=== PATIENT | male | born 1970 | race Caucasian/White ===

== ENCOUNTER 2020-02-15 15:21 | Emergency (ER) | payer BC ==
[~2020-02-15] VITALS: Ht 172.7 cm; Wt 113.0 kg
[2020-02-15] MEDS ORDERED: PRILOSEC OTC20 MG PO (15:38)
[2020-02-15 16:16] LABS: URINE BILIRUBIN NEGATIVE (Negative); URINE BLOOD NEGATIVE (Negative); URINE CLARITY CLEAR; URINE COLOR YELLOW; URINE GLUCOSE-RANDOM NEGATIVE (Negative); URINE KETONES TRACE (Negative); URINE LEUKOCYTES-REFLEX NEGATIVE (Negative); URINE NITRITE-REFLEX NEGATIVE (Negative); URINE PROTEIN NEGATIVE (Negative); URINE SPECIFIC GRAVITY 1.015 (1.005-1.030)
[2020-02-15 16:17] LABS: ABSOLUTE LYMPHOCYTES 0.6 thou/uL (0.8-5.3); ABSOLUTE MONOCYTES 0.5 thou/uL (0.0-1.2); ABSOLUTE NEUTROPHILS 1.9 thou/uL (1.6-8.1); BASOPHILS 0.4 %; EOSINOPHILS 0.4 %; HEMATOCRIT 46.8 % (42.0-52.0); HEMOGLOBIN 15.9 gm/dL (14.0-18.0); LYMPHOCYTES 21.1 %; MCH 30.3 pg (26.0-34.0); MCV 89.2 fL (80.0-100.0); MONOCYTES 15.1 %; NUCLEATED RBCS 0 /100WBC; PLATELET COUNT* 162 thou/uL (150-400); RBC 5.25 mil/uL (4.50-6.00)
[2020-02-15 16:23] LABS: CALCIUM 7.9 mg/dL (8.5-10.1); CREATININE 1.2 mg/dL (0.6-1.3); POTASSIUM 3.9 mmol/L (3.5-5.1)
[2020-02-15 16:28] LABS: ALBUMIN 3.5 g/dL (3.4-5.0); TOTAL BILIRUBIN 0.3 mg/dL (<0.1-1.0); TOTAL PROTEIN 7.3 g/dL (6.4-8.2)
[2020-02-15] MEDS ORDERED: ONDANSETRON ODT4 MG PO (18:26)
[2020-02-15] MEDS ORDERED: PHENERGAN 25 MG25 M1 PO (18:26)
[2020-02-15] MEDS ORDERED: ZPAK PO (18:26)
[2020-02-15 18:37] VITALS: BP 133/54
--- NOTE | 2020-02-16 16:06 | EKG ---
[place] [address] ELECTROCARDIOGRAM REPORT Name: BETTY JAIN Room: [facility]#: [id number] Admission: 02/15/20 Attend Phys: Discharge: 02/15/20 Date of : 66 Date of Service: 02/15/20 1616 Report #: [id number] THIS REPORT FOR: //name// [facility] ED Test Date: 2020-02-15 Test Time: 16:16:40 Pat Name: BETTY JAIN Department: Room: Gender: Card Grinder: : 1970 Requested By: Kee Peguero Order Number: [id number] MD: Joce Olvera Measurements Intervals [place] Rate: 70 P: 33 MS: 163 QRS: -29 QRSD: 87 T: 20 QT: 373 QTc: 403 Interpretive Statements Sinus rhythm Borderline left axis deviation Probable anterior infarct, old No previous ECG available for comparison Electronically Signed On 02-16-2020 16:06:13 DIRECT SALES REPRESENTATIVE by Joce Olvera [email or web address] <ELECTRONICALLY SIGNED> By: Joce Olvera MD, [facility] 02/16/20 1606 15 15 Joce Olvera MD, FAC /EPI
== END 2020-02-15 18:37 | disposition home or self-care (01) ==
LOC: M.ERS 15:21
PROVIDERS: Physician Assistant
DX: U07.1 COVID-19 (principal); J18.9 Pneumonia, unspecified organism; Z88.8 Allergy status to other drugs, medicaments and biological substances